=== PATIENT | male | born 1950 | race Two or more races ===

== ENCOUNTER 2019-12-02 05:50 | Day surgery (SDC) | payer MEDICARE, BC ==
--- NOTE | 2019-11-24 18:21 | Pre-Procedure Note/Attestation ---
Pre-Procedure Note/Attestation Complete Prior to Procedure Planned Procedure: not applicable Procedure Narrative: Repair of nasal septal perforation with internal nasal flaps Indications for Procedure Pre-Operative Diagnosis: Nasal septal perforation Attestation I attest that I discussed the nature of the procedure; its benefits; risks and complications; and alternatives (and the risks and benefits of such alternatives ), prior to the procedure, with the patient (or the patient's legal floor representative). I attest that, if there was a reasonable possibility of needing a blood transfusion, the patient (or the patient's legal floor representative) was given the [facility] standardized written summary, pursuant to the [place] Blood Safety Act ([place] Health and Safety Code # 1645, as amended). I attest that I re-evaluated the patient just prior to the surgery and that there has been no change in the patient's H&P done by his PMD and reviewed by me. : Charanjit Lomax MD Nov 24, 2019 18:21
--- NOTE | 2019-11-24 18:22 | Brief Operative Note ---
Immediate Post Operative Note Operative Note Chief Complaint: Nasal septal perforation Pre-op Diagnosis: Nasal septal perforation Procedure: Repair of nasal septal perforation with internal nasal flaps Post-op Diagnosis: same as pre-op Surgeon: Charanjit Lomax [employer] Repairer: none Additional Surgeons: none Anesthesiologist: MD Lucien Anesthesia: general Specimen: yes - Septum to R/O Wegners or Midline granuloma Complications: none Condition: stable Fluids: D5LR Estimated Blood Loss: volume - 10 cc Drains: none Packing: Sino nasal gel Implant(s) used?: No Charanjit Lomax MD Nov 24, 2019 18:22
--- NOTE | 2019-11-24 18:25 | Discharge Instructions ---
Discharge Instructions Discharge Instructions Follow up with: Dr. Lomax next week in his office-pt needs to call and make appt. for 12/04 Diet: regular Resume Normal Activity?: No Activity: light activity Pneumonia Vaccine: pt refused vaccine Influenza Vaccine (Jul to Dec): pt refused vaccine Follow Up Orders Ice to nose x 48 hours. Change moustache dressing PRN Return to Work/School on: Dec 08, 2019 For Surgical Patients Dressing Care: may change Contact your physician for: bleeding For Congestive Heart Failure Reminder Report to your physician any weight gain of 5 pounds or more in one week. Charanjit Lomax MD Nov 24, 2019 18:25
[~2019-12-02] VITALS: Ht 180.3 cm; Wt 102.1 kg
[2019-12-02] VITALS (12 sets, daily range): BP systolic 117–138; BP diastolic 75–94
[~2019-12-02 05:50] MED LIST: ALFUZOSIN HCL10 MG PO; AMOXICILLIN500 MG ORAL; ATORVASTATIN CA20 MG ORAL; Dexamethasone 4mg/ml vial IVP ONE; PROSCAR5 MG ORAL; allopurinol PO; ceFAZolin sod 1 GM in D5W 55 ML IV ONE
[2019-12-02] MEDS ORDERED: LR 1000ml 1,000 ML IVLG SCH (07:15)
[2019-12-02] MEDS ORDERED: Midazolam 2mg/2ml Inj IVP PRN (07:15)
[2019-12-02] MEDS ORDERED: Lidocaine 1% 10mg/ml/Epi 0.005mg/ml 30ml vial INJ ONE (07:15)
[2019-12-02] MEDS ORDERED: Bupivacaine w/Epi 0.5% 30ml Vial INJ ONE (07:15)
[2019-12-02] MEDS ORDERED: fentaNYL 100 mcg/2 mL IV PRN (07:15)
[2019-12-02] MEDS ORDERED: Cocaine HCl 4% 4ml vial TOPIC ONE (07:15)
[2019-12-02] MEDS ORDERED: Hydromorphone 0.5mg/0.5ml inj IVP PRN (07:15)
[2019-12-02] MEDS ORDERED: LORazepam Inj 2mg/ml 1ml IV PRN (07:15)
[2019-12-02] MEDS ORDERED: DiphenhydrAMINE 50mg/ml Inj IVP PRN (07:15)
--- NOTE | 2019-12-02 07:15 | Anethesia Preoperative Eval ---
Anesthesia Pre-op PMH/ROS General Date of Evaluation: Dec 02, 2019 Anesthesiologist: Lucien ASA Score: ASA 2 Mallampati Score Class I : Soft palate, uvula, fauces, pillars visible Class II: Soft palate, uvula, fauces visible Class III: Soft palate, base of uvula visible Class IV: Only hard plate visible Mallampati Classification: Class II Surgeon: Monie Diagnosis: septal perforation Surgical Procedure: repair septal perforation Anesthesia History: none Family History: no anesthesia problems Allergies: Coded Allergies: No Known Allergies (Unverified , 11/24/19) Medications: see eMAR Patient NPO?: Yes NPO Date: Dec 02, 2019 NPO Time: 00:00 Past Medical History Cardiovascular: Reports: HTN, other - HLD; Denies: CAD, ME, valve dz, arrhythmia Pulmonary: Denies: asthma, COPD, NANNETTE, other Gastrointestinal/Genitourinary: Reports: GERD, other - BPH; Denies: CRI, ESRD Neurologic/Psychiatric: Denies: dementia, CVA, depression/anxiety, TIA, other Endocrine: Denies: DM, hypothyroidism, steroids, other HEENT: Reports: [place] (L), [place] (R); Denies: cataract (L), cataract (R), glaucoma, other Hematology/Immune: Denies: anemia, DVT, bleeding disorder, other Musculoskeletal/Integumentary: Reports: OA; Denies: RA, DJD, DDD, edema, other Other: obesity PSxH Narrative: UHR, bilateral elbow sx, right wrist sx Anesthesia Pre-op Phys. Exam Physician Exam Last Vital Signs Date Time Temp Pulse Resp B/P (MAP) Pulse Ox O2 Delivery O2 Flow Rate FiO2 12/02/19 06:49 Room Air 12/02/19 06:36 97.2 62 18 135/86 95 Constitutional: NAD Cardiovascular: RRR Respiratory: CTA Airway Exam Mallampati Score: Class II MO: limited ROM: limited Anesthesia Pre-op A/P Labs see chart Studies Pre-op Studies: EKG - sr Risk Assessment & Plan Assessment: ASA II Plan: GA Status Change Before Surgery: No Pre-Antibiotics Drug: Florina Vargas MD Dec 02, 2019 07:15
[2019-12-02] MEDS ORDERED: fentaNYL 100 mcg/2 mL IV ONE (07:30)
[2019-12-02] MEDS ORDERED: Lidocaine 1% MPF 10mg/ml 5ml ONE (07:30)
[2019-12-02] MEDS ORDERED: LR 1000ml ONE (07:30)
[2019-12-02] MEDS ORDERED: Midazolam 2mg/2ml Inj ONE (07:30)
[2019-12-02] MEDS ORDERED: Propofol 200mg/20ml IV ONE (07:30)
[2019-12-02] MEDS ORDERED: NS Irrig 1000ml ONE (07:30)
[2019-12-02] MEDS ORDERED: Sterile Water Irrig 1000ml IRRIG ONE (07:30)
[2019-12-02] MEDS ORDERED: Metoclopramide 10mg/2ml Inj IVP PRN (08:15)
[2019-12-02] MEDS ORDERED: HYDROcodone/Acetamin 5/325 tab ORAL PRN (08:15)
[2019-12-02] MEDS ORDERED: DiphenhydrAMINE 25mg Tab ORAL PRN (08:15)
[2019-12-02] MEDS ORDERED: HYDROmorphone 1mg/ml Carpuject SUBQ PRN (08:15)
--- NOTE | 2019-12-02 08:17 | Immediate Post-Op Evaluation ---
Immediate Post-Op Evalulation Immediate Post-Op Evalulation Procedure: Interior nasal graft to close nasal perforation Date of Evaluation: Dec 02, 2019 Time of Evaluation: 08:19 IV Fluids: 600 Blood Products: 0 Estimated Blood Loss: min Urinary Output: 0 Blood Pressure Systolic: 114 Blood Pressure Diastolic: 81 Pulse Rate: 65 Respiratory Rate: 16 O2 Sat by Pulse Oximetry: 99 Temperature (Fahrenheit): 97.2 Pain Score (1-10): 0 Nausea: No Vomiting: No Complications 0 Patient Status: awake, reacts, patent, extubated, none Hydration Status: adequate Drug: Ancef 2g Given Within 1 Hr of Incision: Yes Florina Batres MD Dec 02, 2019 08:17
--- NOTE | 2019-12-02 08:18 | 48 Hour Post Anesthesia Eval ---
Post Anesthesia Evaluation Procedure: Interior nasal graft to close nasal perforation Date of Evaluation: Dec 02, 2019 Airway: patent Nausea: No Vomiting: No Pain Intensity: 0 Hydration Status: adequate Cardiopulmonary Status: at baseline Mental Status/LOC: patient returned to baseline Post-Anesthesia Complications: 0 Follow-up care needed: ready to discharge Florina Batres MD Dec 02, 2019 08:18
--- NOTE | 2019-12-02 10:15 | Operative Note - Dictated ---
DATE OF OPERATION: 12/02/2019 SURGEON: Charanjit Lomax M.D. RN LICENSED PRACTICAL: None. ANESTHESIOLOGIST: Dr. Mcgraw. ANESTHESIA: LMA general anesthesia. INDICATION FOR PROCEDURE: The patient with traumatic nasal septal perforation for repair with an intranasal flap. PREOPERATIVE DIAGNOSIS: The patient with traumatic nasal septal perforation for repair with an intranasal flap. POSTOPERATIVE DIAGNOSIS: The patient with traumatic nasal septal perforation for repair with an intranasal flap. FINDINGS: The patient with traumatic nasal septal perforation for repair with an intranasal flap. PROCEDURE: Pedicle flap to repair septal perforation. TECHNIQUE: The patient prepped and draped in the usual manner via LMA general anesthesia. I injected 7 mL of 0.5% Sensorcaine with 1:200,000 epinephrine. A time-out was performed as well prior to the injection. All agreed as to the procedure and equipment required. Initially, I made an incision along the left inferior aspect of the turbinate. I then was able to dissect out the cartilage in the turbinate leaving the mucosa attached to the lateral wall of the nose. At this point, I made radial incisions along the perforation of the septum and sewed the graft with the submucosal area attached. I then rotated the mucosa on the right side to adhere to this. A 4-0 plain suture was placed x2. I then placed a small sponge, which will dissolve over the next few days into either side to apply gentle pressure. Also notes that I used 4 mL of 4% topical cocaine and it was accounted for at the end of the case. Sponge and needle count was correct. ESTIMATED BLOOD LOSS: 10 mL. COUNTS: None. DRAINS: None. The patient awake, alert, and stable in the recovery room after leaving the operating room 10 minutes after the procedure. Charanjit Lomax M.D. DR: IVONNE JOB#: [id number] CC:
--- NOTE | 2019-12-08 21:30 | History and Physical Report ---
DATE OF ADMISSION: 12/02/2019 HISTORY OF PRESENT ILLNESS: This is a 68-year-old male for attempted repair of nasal septal perforation caused by digital trauma most probably. He understands at best there is a 50% chance this will succeed. PAST MEDICAL HISTORY: Remarkable for ear infections, BPH, gout, high cholesterol, hearing loss, fibrous dysplasia. He also has epistaxis in the past. SOCIAL HISTORY: , three children. Denies drug and alcohol use. Identifies as male. PAST SURGICAL HISTORY: Elbow, shoulder, and hernia. MEDICATIONS: Alfuzosin, allopurinol, aspirin, and simvastatin. PHYSICAL EXAMINATION: GENERAL: The patient is a 68-year-old gentleman, 71 inches, 225 pounds. BMI 30.52. VITAL SIGNS: Blood pressure was 120/80, temperature 98.4, heart rate 71, respiratory rate 14. HEENT: Eyes, PERRLA, EOMI. Lips, tongue, pharynx normal. Nose, he has a perforation of the septum approximately diameter. NECK: Normal. CHEST: Clear to A and P. ABDOMEN: Soft and nontender. Normoactive bowel sounds. EXTREMITIES: Grossly normal. ASSESSMENT: He is a candidate for internal flaps to try to repair nasal septal perforation, which at best has a 50% success rate. The patient is aware of this. All labs are cleared for him. He is stable for surgery. Charanjit Lomax M.D. DR: FRANK JOB#: [id number] CC:
== END 2019-12-02 10:15 | disposition home or self-care (01) ==
LOC: SUR 05:50
DX: J34.89 Other specified disorders of nose and nasal sinuses (principal); I10 Essential (primary) hypertension; E78.5 Hyperlipidemia, unspecified; K21.9 Gastro-esophageal reflux disease without esophagitis; M19.90 Unspecified osteoarthritis, unspecified site; E66.9 Obesity, unspecified; Z68.31 Body mass index [BMI] 31.0-31.9, adult
CPT/HCPCS: 30630; C9046; J0690; J2250; J2704; J3010; J7120; 94003; 94150